=== PATIENT | female | born 1970 | race American Indian/Alaskan Native ===

== ENCOUNTER 2017-10-16 10:00 | Emergency (ER) | payer BC ==
[2017-10-16 10:18] VITALS: BP 128/82
[2017-10-16 11:59] LABS: Hematocrit 33.5 % (30.3-42.9); Hemoglobin 10.2 gm/dl (10.1-14.3); Mean Corpuscular HGB Conc 31 % (30-34); Platelet Count 448 K/mm3 (140-440); Red Blood Count 5.16 M/mm3 (3.65-5.03); Red Cell Distribution Width 17.4 % (13.2-15.2)
[2017-10-16 12:03] LABS: Mean Corpuscular Hemoglobin 20 pg (28-32); Mean Corpuscular Volume 65 fl (79-97)
[2017-10-16 12:14] LABS: BUN/Creatinine Ratio 15; Blood Urea Nitrogen 9 mg/dL (7-17); Calcium 9.5 mg/dL (8.4-10.2); Hemolysis Index 0
[2017-10-16] MEDS ORDERED: ZOFRAN IV ONE (13:06)
[2017-10-16] MEDS ORDERED: TORADOL IV ONE (13:06)
[2017-10-16] MEDS ORDERED: MORPHINE IV ONE (13:06)
--- NOTE | 2017-10-16 15:24 | Emergency Department Report ---
ED Seizure HPI - General Chief Complaint: Seizure Stated Complaint: SEIZURE Time Seen by Provider: 10/16/17 12:44 Source: EMS Mode of arrival: Stretcher Limitations: No Limitations - History of Present Illness Initial Comments: 47-year-old female with a past medical history seizures presents to the hospital status post seizure. Patient's I have any preseizure symptoms. She has generalized shaking episode. Upon EMS arrival patient is post ictal with mild lateral tongue abrasion and urinary incontinence. Patient complains of a moderate generalized headache, no focal weakness, no focal numbness, fever. Patient admits to intermittent compliance with her medication and is unsure if she had her dose last night or this morning. Patient also expresses concern that her neurologist is not properly treating her despite her "paying him a lot of money" - Related Data Previous Rx's Medication Instructions Recorded Last Taken Type Ibuprofen [Motrin] 800 mg PO Q8HR PRN #30 tablet 10/16/17 Unknown Rx Allergies Allergy/AdvReac Type Severity Reaction Status Date / Time No Known Allergies Allergy Unverified 10/16/17 10:37 ED Review of Systems ROS: Stated complaint: SEIZURE Other details as noted in HPI Comment: All other systems reviewed and negative Other: Constitutional: No fevers chills Eyes: No eye pain visual changes ENT: No ear pain or throat pain Neck: Denies pain Respiratory: Denies cough wheezing shortness of breath Cardiovascular: Denies chest pain, palpitations, syncope GI: Denies abdominal pain, nausea, vomiting, diarrhea : Denies dysuria Musculoskeletal: Denies back pain Skin: Denies rash, lesions, erythema Neurologic: Denies numbness, weakness Psychiatric: Denies suicidal ideation, hallucinations ED Past Medical Hx - Social History Smoking Status: Never Smoker Substance Use Type: Alcohol - Medications Home Medications: Home Medications Medication Instructions Recorded Confirmed Last Taken Type Ibuprofen [Motrin] 800 mg PO Q8HR PRN #30 tablet 10/16/17 Unknown Rx ED Physical Exam - General Limitations: No Limitations - Other Other exam information: General: No limitations, patient is alert in no acute distress Head exam: Atraumatic, normocephalic Eyes exam: Normal appearance, pupils equal reactive to light, extraocular movements intact ENT: Moist mucous membrane, normal oropharynx. Minimum left lateral tongue abrasion without laceration or active bleeding Neck exam: Normal inspection, full range of motion, no meningismus nontender Respiratory exam: Clear to auscultation bilateral, no wheezes, rales, crackles Cardiovascular: Normal rate and rhythm, normal heart sounds Abdomen: Soft, nondistended, and nontender, with normal bowel sounds, no rebound, or guarding Extremity: Full range of motion normal inspection no deformity Back: Normal Inspection, full range of motion, no tenderness Neurologic: Alert, oriented x3, cranial nerves intact, no motor or sensory deficit Psychiatric: normal affect, normal mood Skin: Warm, dry, intact ED Course Vital Signs 10/16/17 10:13 Temperature 98.5 F Pulse Rate 96 H Blood Pressure 128/82 O2 Sat by Pulse 97 Oximetry - Reevaluation(s) Reevaluation #1: 10/16/17 15:21 She treated with morphine, Toradol, and Zofran for headache with improvement Fosphenytoin initiated for seizure ED Medical Decision Making - Lab Data Result diagrams: 10/16/17 11:49 10/16/17 11:49 Lab Results 10/16/17 10/16/17 10/16/17 Range/Units 10:54 11:49 11:49 WBC 6.9 (4.5-11.0) K/mm3 RBC 5.16 H (3.65-5.03) M/mm3 Hgb 10.2 (10.1-14.3) gm/dl Hct 33.5 (30.3-42.9) % MCV 65 L (79-97) fl MCH 20 L (28-32) pg MCHC 31 (30-34) % RDW 17.4 H (13.2-15.2) % Plt Count 448 H (140-440) K/mm3 Sodium 135 L (137-145) mmol/L Potassium 4.1 (3.6-5.0) mmol/L Chloride 93.7 L (98-107) mmol/L Carbon Dioxide 28 (22-30) mmol/L Anion Gap 17 mmol/L BUN 9 (7-17) mg/dL Creatinine 0.6 L (0.7-1.2) mg/dL Estimated GFR > 60 ml/min BUN/Creatinine Ratio 15 % Glucose 108 H (65-100) mg/dL POC Glucose 107 H (70-105) Calcium 9.5 (8.4-10.2) mg/dL Magnesium (1.7-2.3) mg/dL HCG, Qual (Negative) Phenytoin (10.0-20.0) ug/mL 10/16/17 10/16/17 10/16/17 Range/Units 13:12 13:12 13:12 WBC (4.5-11.0) K/mm3 RBC (3.65-5.03) M/mm3 Hgb (10.1-14.3) gm/dl Hct (30.3-42.9) % MCV (79-97) fl MCH (28-32) pg MCHC (30-34) % RDW (13.2-15.2) % Plt Count (140-440) K/mm3 Sodium (137-145) mmol/L Potassium (3.6-5.0) mmol/L Chloride (98-107) mmol/L Carbon Dioxide (22-30) mmol/L Anion Gap mmol/L BUN (7-17) mg/dL Creatinine (0.7-1.2) mg/dL Estimated GFR ml/min BUN/Creatinine Ratio % Glucose (65-100) mg/dL POC Glucose (70-105) Calcium (8.4-10.2) mg/dL Magnesium 1.90 (1.7-2.3) mg/dL HCG, Qual Negative (Negative) Phenytoin 1.0 L (10.0-20.0) ug/mL - Medical Decision Making Seizure Patient expressed that she thinks she is being in adequately managed by her neurologist however, admits to medication noncompliance Dilantin level 1 1 and therefore subtherapeutic secondary to noncompliance I discussed the importance of compliance with patient and her family members. If she continues to have seizures despite compliance and therapeutic levels she may need an alternative medication at that time Patient will be given alternative neurologist for follow-up per her request. - Differential Diagnosis breakthrough seizure, electrolyte abnormality, medication noncompliance Critical Care Time: No Critical care attestation.: If time is entered above; I have spent that time in minutes in the direct care of this critically ill patient, excluding procedure time. ED Disposition Clinical Impression: Seizure, Noncompliance with medication regimen Disposition: - TO HOME OR SELFCARE Is pt being admited?: No Does the pt Need Aspirin: No Condition: Stable Instructions: Epilepsy (ED) Additional Instructions: Take your medication as prescribed and try not to miss doses. Follow-up with your neurologist will either neurologist provided. Return if symptoms worsen as indicated by your discharge instructions. Prescriptions: Ibuprofen [Motrin] 800 mg PO Q8HR PRN #30 tablet PRN Reason: Pain Referrals: MARYAM WALLS MD [Staff Physician] - 3-5 Days (Neurologist) NETTA DOUGHERTY MD [Staff Physician] - 3-5 Days (Neurologist) Time of Disposition: 15:27 (d/c after med infusion)
[2017-10-16] MEDS ORDERED: CEREBYX 1,000 MG.PE in NACL 0.9% 100 ML IV ONE (16:22)
== END 2017-10-16 17:21 | disposition home or self-care (01) ==
LOC: ED 10:00
DX: G40.909 Epilepsy, unspecified, not intractable, without status epilepticus (principal); Z91.14 Patient's other noncompliance with medication regimen
CPT/HCPCS: 36415; 80048; 80185; 82962; 83735; 84703; 85027; 96365; 96375; 99284; J1885; J2270; J2405; Q2009

== ENCOUNTER 2018-01-30 16:37 | Emergency (ER) | payer BC ==
[2018-01-30 18:07] LABS: Hematocrit 37.6 % (30.3-42.9); Hemoglobin 11.6 gm/dl (10.1-14.3); Mean Corpuscular HGB Conc 31 % (30-34); Platelet Count 334 K/mm3 (140-440); Red Blood Count 5.44 M/mm3 (3.65-5.03); Red Cell Distribution Width 18.3 % (13.2-15.2)
[2018-01-30 18:10] LABS: Mean Corpuscular Hemoglobin 21 pg (28-32); Mean Corpuscular Volume 69 fl (79-97)
[2018-01-30 18:28] LABS: BUN/Creatinine Ratio 17; Blood Urea Nitrogen 10 mg/dL (7-17); Hemolysis Index 197
--- NOTE | 2018-01-30 19:21 | Emergency Department Report ---
ED Seizure HPI - General Chief Complaint: Altered Mental Status Stated Complaint: SEIZURE Time Seen by Provider: 01/30/18 18:31 Source: family Mode of arrival: Wheelchair Limitations: No Limitations - History of Present Illness MD Complaint: seizure -: Sudden Description of Episode: loss of consciousness, tonic-clonic movement -: minutes(s) (2) Witnessed:: Yes Trauma: No Seizure History: known seizure disorder Place: home Possible Precipitating Event: other (patient ran out of her Dilantin.) Associated Symptoms: denies other symptoms Treatments Prior to Arrival: none - Related Data Previous Rx's Medication Instructions Recorded Last Taken Type Ibuprofen [Motrin] 800 mg PO Q8HR PRN #30 tablet 10/16/17 Unknown Rx Phenytoin Sodium Extended 300 mg PO QHS #90 capsule 01/30/18 Unknown Rx [Dilantin] Allergies Allergy/AdvReac Type Severity Reaction Status Date / Time No Known Allergies Allergy Unverified 10/16/17 10:37 ED Review of Systems ROS: Stated complaint: SEIZURE Other details as noted in HPI Comment: All other systems reviewed and negative Constitutional: denies: chills, fever Eyes: denies: vision change ENT: denies: ear pain, throat pain Respiratory: denies: cough, shortness of breath Cardiovascular: denies: chest pain, palpitations Endocrine: no symptoms reported Gastrointestinal: denies: abdominal pain, nausea, vomiting, diarrhea Genitourinary: denies: urgency, dysuria, frequency Musculoskeletal: denies: back pain, joint swelling Skin: denies: rash, change in color Neurological: denies: headache, weakness, numbness Psychiatric: denies: anxiety, depression Hematological/Lymphatic: denies: easy bleeding, easy bruising ED Past Medical Hx - Social History Smoking Status: Never Smoker Substance Use Type: None - Medications Home Medications: Home Medications Medication Instructions Recorded Confirmed Last Taken Type Ibuprofen [Motrin] 800 mg PO Q8HR PRN #30 tablet 10/16/17 Unknown Rx Phenytoin Sodium Extended 300 mg PO QHS #90 capsule 01/30/18 Unknown Rx [Dilantin] ED Physical Exam - General Limitations: No Limitations General appearance: alert, in no apparent distress - Head Head exam: Present: atraumatic, normal inspection - Eye Eye exam: Present: normal appearance, PERRL, EOMI Pupils: Present: normal accommodation - ENT ENT exam: Present: normal exam, normal orophraynx, mucous membranes moist - Neck Neck exam: Present: normal inspection, full ROM. Absent: tenderness - Respiratory Respiratory exam: Present: normal lung sounds bilaterally. Absent: respiratory distress, wheezes - Cardiovascular Cardiovascular Exam: Present: regular rate, normal rhythm, normal heart sounds - GI/Abdominal GI/Abdominal exam: Present: soft, normal bowel sounds. Absent: tenderness, guarding, rebound - Extremities Exam Extremities exam: Present: normal inspection, full ROM, normal capillary refill - Back Exam Back exam: Present: normal inspection, full ROM. Absent: tenderness - Neurological Exam Neurological exam: Present: alert, oriented X3, CN II-XII intact - Psychiatric Psychiatric exam: Present: normal affect, normal mood - Skin Skin exam: Present: warm, dry, intact, normal color ED Course Vital Signs 01/30/18 01/30/18 01/30/18 16:51 17:48 18:00 Temperature 97.6 F Pulse Rate 105 H Respiratory 16 Rate Blood Pressure 136/82 113/81 O2 Sat by Pulse 98 97 97 Oximetry 01/30/18 01/30/18 01/30/18 18:31 19:00 19:30 Temperature Pulse Rate Respiratory Rate Blood Pressure 123/61 116/76 119/76 O2 Sat by Pulse 99 98 100 Oximetry 01/30/18 01/30/18 01/30/18 20:00 20:30 21:00 Temperature Pulse Rate Respiratory Rate Blood Pressure 116/80 117/76 122/70 O2 Sat by Pulse 100 100 96 Oximetry ED Medical Decision Making - Lab Data Result diagrams: 01/30/18 17:39 01/30/18 20:25 - Medical Decision Making Seizure disorder. Critical care attestation.: If time is entered above; I have spent that time in minutes in the direct care of this critically ill patient, excluding procedure time. ED Disposition Clinical Impression: Seizure disorder Disposition: - TO HOME OR SELFCARE Is pt being admited?: No Does the pt Need Aspirin: No Condition: Stable Instructions: Epilepsy (ED), Recurrent Seizures Adult (ED) Additional Instructions: Follow-up with your neurologist tomorrow morning. Return to the emergency room if her condition worsens. Prescriptions: Phenytoin Sodium Extended [Dilantin] 300 mg PO QHS #90 capsule Referrals: PRIMARY CARE, [Primary Care Provider] - 3-5 Days Time of Disposition: :13
[2018-01-30] MEDS ORDERED: NACL 0.9% 1000 ML 1,000 ML IV ONE (19:22)
[2018-01-30] MEDS ORDERED: CEREBYX 1,000 MG.PE in NACL 0.9% 100 ML IV ONE (19:22)
[2018-01-30 20:56] LABS: BUN/Creatinine Ratio 18; Blood Urea Nitrogen 9 mg/dL (7-17); Calcium 9.1 mg/dL (8.4-10.2); Hemolysis Index 9
[2018-01-31 00:53] VITALS: BP 116/67
== END 2018-01-31 00:53 | disposition home or self-care (01) ==
LOC: ED 16:37
DX: G40.909 Epilepsy, unspecified, not intractable, without status epilepticus (principal)
CPT/HCPCS: 36415; 80048; 80185; 82962; 84132; 85027; 85730; 93005; 93010; 96365; 99283; J7030; Q2009

== ENCOUNTER 2018-11-01 05:05 | Inpatient (IN) | payer BC, OTHER ==
--- NOTE | 2018-11-01 06:29 | Emergency Department Report ---
ED Seizure HPI - General Chief Complaint: Seizure Stated Complaint: SEIZURES Time Seen by Provider: 11/01/18 06:15 Source: patient, EMS Mode of arrival: Stretcher Limitations: No Limitations - History of Present Illness Initial Comments: Patient is a 48-year-old female that presents emergency room with multiple seizures. Patient states her neurologist changed her seizure medications around because her Dilantin level was high. Patient taking less Dilantin and started on a new seizure medication. Patient seizure witnessed by her . Patient's said they lasted about 5 minutes and were multiple. EMS brought patient to the ER. Patient A& O 3 but sluggish. MD Complaint: seizure -: Sudden Description of Episode: loss of consciousness, tonic-clonic movement, post-event confusion -: minutes(s) Witnessed:: Yes Trauma: No Seizure History: known seizure disorder, compliant with medication, other (patient's neurologist recently adjusted her medications.) Place: home Possible Precipitating Event: medication Associated Symptoms: tongue injury. denies: chest pain, confusion, cough, d iaphoresis, fever/chills, loss of appetite, malaise, rash, shortness of breath, syncope, weakness, shoulder dislocation Treatments Prior to Arrival: none - Related Data Home Medications Medication Instructions Recorded Confirmed Last Taken Phenytoin Sodium Extended 400 mg PO QHS 07/28/18 11/01/18 10/31/18 20:00 [Dilantin] Zonisamide 100 mg PO HS 11/01/18 11/01/18 10/31/18 20:00 Allergies Allergy/AdvReac Type Severity Reaction Status Date / Time No Known Allergies Allergy Unverified 10/16/17 10:37 ED Review of Systems ROS: Stated complaint: SEIZURES Other details as noted in HPI Constitutional: denies: chills, fever Eyes: denies: eye pain, eye discharge, vision change ENT: denies: ear pain, throat pain Respiratory: denies: cough, shortness of breath, wheezing Cardiovascular: denies: chest pain, palpitations Endocrine: no symptoms reported Gastrointestinal: denies: abdominal pain, nausea, diarrhea Genitourinary: denies: urgency, dysuria, discharge Musculoskeletal: denies: back pain, joint swelling, arthralgia Skin: denies: rash, lesions Neurological: denies: headache, weakness, paresthesias Psychiatric: denies: anxiety, depression Hematological/Lymphatic: denies: easy bleeding, easy bruising ED Past Medical Hx - Past Medical History Previous Medical History?: Yes Hx Hypertension: No Hx CVA: No Hx Heart Attack/AMI: No Hx Congestive Heart Failure: No Hx Diabetes: No Hx Deep Vein Thrombosis: No Hx Pulmonary Embolism: No Hx GERD: No Hx Liver Disease: No Hx Renal Disease: No Hx Sickle Cell Disease: No Hx Arthritis: No Hx Headaches / Migraines: No Hx Seizures: Yes Hx Kidney Stones: No Hx Psychiatric Treatment: No Hx Asthma: No Hx COPD: No Hx Tuberculosis: No Hx Dementia: No Hx HIV: No - Surgical History Past Surgical History?: Yes Additional Surgical History: tubligation, hysterectomy - Family History Family history: no significant - Social History Smoking Status: Never Smoker Substance Use Type: None - Medications Home Medications: Home Medications Medication Instructions Recorded Confirmed Last Taken Type Phenytoin Sodium Extended 400 mg PO QHS 07/28/18 11/01/18 10/31/18 20:00 History [Dilantin] Zonisamide 100 mg PO HS 11/01/18 11/01/18 10/31/18 20:00 History ED Physical Exam - General Limitations: No Limitations General appearance: alert, in no apparent distress - Head Head exam: Present: atraumatic, normocephalic - Eye Eye exam: Present: normal appearance, PERRL Pupils: Present: normal accommodation - ENT ENT exam: Present: mucous membranes moist - Neck Neck exam: Present: normal inspection - Respiratory Respiratory exam: Present: normal lung sounds bilaterally. Absent: respiratory distress - Cardiovascular Cardiovascular Exam: Present: regular rate, normal rhythm. Absent: systolic murmur, diastolic murmur, rubs, gallop - GI/Abdominal GI/Abdominal exam: Present: soft, normal bowel sounds - Extremities Exam Extremities exam: Present: normal inspection - Back Exam Back exam: Present: normal inspection - Neurological Exam Neurological exam: Present: alert, oriented X3 - Psychiatric Psychiatric exam: Present: normal affect, normal mood - Skin Skin exam: Present: warm, dry, intact, normal color. Absent: rash ED Course Vital Signs 11/01/18 11/01/18 11/01/18 05:13 06:43 07:00 Temperature 98.8 F Pulse Rate 98 H 95 H Respiratory 12 20 14 Rate Blood Pressure 131/90 109/63 Blood Pressure 130/91 [Right] O2 Sat by Pulse 98 98 97 Oximetry 11/01/18 11/01/18 11/01/18 07:30 07:37 07:46 Temperature Pulse Rate 89 61 Respiratory 11 L 16 25 H Rate Blood Pressure 110/80 156/84 Blood Pressure [Right] O2 Sat by Pulse Oximetry 11/01/18 11/01/18 11/01/18 10:06 10:30 11:10 Temperature Pulse Rate 87 82 102 H Respiratory 15 15 12 Rate Blood Pressure 133/79 113/69 133/79 Blood Pressure [Right] O2 Sat by Pulse 97 99 Oximetry 11/01/18 11/01/18 11/01/18 11:30 12:00 12:30 Temperature Pulse Rate 93 H 97 H 93 H Respiratory 14 12 15 Rate Blood Pressure 113/74 109/77 112/75 Blood Pressure [Right] O2 Sat by Pulse 100 Oximetry 11/01/18 11/01/18 13:00 14:32 Temperature Pulse Rate 109 H 18 L Respiratory 14 14 Rate Blood Pressure 110/69 Blood Pressure 110/69 [Right] O2 Sat by Pulse 99 100 Oximetry - Reevaluation(s) Reevaluation #1: Initial evaluation done. Patient answering all questions appropriately. P atient states that they have been changing her medications around. 11/01/18 06:15 Seizure activity noted. Patient was given Ativan. 11/01/18 07:37 Patient still not answering questions appropriately. Patient is lethargic but arousable. We'll do a CT of the head 11/01/18 10:46 Discussed all results the patient. Patient agrees with plan of care and admission. Patient is more arousable. is at bedside 11/01/18 11:42 - Consultations Consultation #1: Hospitalist consult for admission. Hospitalist to admit patient and assume care of patient. 11/01/18 12:01 ED Medical Decision Making - Lab Data Result diagrams: 11/01/18 07:21 11/01/18 07:21 - Radiology Data Radiology results: report reviewed CT HEAD WITHOUT CONTRAST INDICATION: Seizure. COMPARISON: None similar at this institution. FINDINGS: Noncontrast head CT demonstrates normal ventricles and sulci without acute or recent infarct, hemorrhage, mass effect or midline shift. No abnormal extra-axial fluid collections. Posterior fossa structures and basilar cisterns within normal limits. Symmetric eye globes. Clear paranasal sinuses and mastoid air cells. Intact calvarium. Normal overlying scalp soft tissues. CONCLUSION: No acute intracranial CT abnormality, as described. Thank you for the opportunity to participate in this patient's care. - Medical Decision Making Patient is a 48-year-old female that presents emergency room with complaints of seizure. Patient has had multiple seizure event. Patient had a witnessed seizure in the ER. Patient was given Ativan. Patient was admitted to the hospital service for further evaluation and treatment. Head CT negative. Labs unremarkable. - Differential Diagnosis seizure. status epl Critical Care Time: Yes Critical care attestation.: If time is entered above; I have spent that time in minutes in the direct care of this critically ill patient, excluding procedure time. Critical Care Time: 35 minutes ED Disposition Clinical Impression: Seizure, Status epilepticus Disposition: OP ADMIT IP TO THIS HOSP Is pt being admited?: Yes Does the pt Need Aspirin: No Condition: Critical Time of Disposition: 12:02
[2018-11-01] MEDS ORDERED: TYLENOL PO ONE (07:19)
[2018-11-01 07:32] LABS: Basophils % (Auto) 0.3 % (0.0-1.8); Eosinophils # (Auto) 0.1 K/mm3 (0.0-0.4); Eosinophils % (Auto) 1.7 % (0.0-4.3); Hematocrit 36.3 % (30.3-42.9); Hemoglobin 11.5 gm/dl (10.1-14.3); Lymphocytes # (Auto) 1.3 K/mm3 (1.2-5.4); Lymphocytes % (Auto) 22.5 % (13.4-35.0); Mean Corpuscular HGB Conc 32 % (30-34); Monocytes # (Auto) 0.3 K/mm3 (0.0-0.8); Monocytes % (Auto) 5.7 % (0.0-7.3); Platelet Count 297 K/mm3 (140-440); Red Blood Count 5.25 M/mm3 (3.65-5.03); Red Cell Distribution Width 15.8 % (13.2-15.2)
[2018-11-01 07:34] LABS: Mean Corpuscular Volume 69 fl (79-97)
[2018-11-01 07:40] LABS: Bilirubin,Urine NEG (Negative); Blood,Urine NEG (Negative); Color,Urine Straw (Yellow); Protein,Urine <15 mg/dL mg/dL (Negative); Urobilinogen,Urine < 2.0 mg/dL (<2.0); WBC,Urine < 1.0 /HPF (0.0-6.0)
[2018-11-01] MEDS ORDERED: ATIVAN IV ONE (07:40)
[2018-11-01 07:49] LABS: HCG Qualitative,Urine Negative (Negative)
[2018-11-01 07:49] LABS: BUN/Creatinine Ratio 23; Blood Urea Nitrogen 14 mg/dL (7-17); Calcium 9.3 mg/dL (8.4-10.2); Hemolysis Index 0
[2018-11-01] MEDS ORDERED: ATIVAN ONE (07:49)
--- NOTE | 2018-11-01 11:16 | Cat Scan Report ---
CT HEAD WITHOUT CONTRAST INDICATION: Seizure. COMPARISON: None similar at this institution. FINDINGS: Noncontrast head CT demonstrates normal ventricles and sulci without acute or recent infarct, hemorrhage, mass effect or midline shift. No abnormal extra-axial fluid collections. Posterior fossa structures and basilar cisterns within normal limits. Symmetric eye globes. Clear paranasal sinuses and mastoid air cells. Intact calvarium. Normal overlying scalp soft tissues. CONCLUSION: No acute intracranial CT abnormality, as described. Thank you for the opportunity to participate in this patient's care.
--- NOTE | 2018-11-01 12:26 | History and Physical Report ---
History of Present Illness Chief complaint: Seizures History of present illness: 48 YO Female with Seizure Disorder, Obesity presents to ED for evaluation. Pt acknowledges multiple seizures over the past 1 week, with increasing frequency of seizures over the past 3 days. Pt states that her most recent seizure resulted in a fall in the bathtub with injury to her face. Pt states that her neurologist has recently changed her medication regimen. Pt seizures were witnessed by her . Pt describes generalized seizure that lasted approximately 5 minutes. Pt acknowledges loss of continence, feeling confused, as well as headache. EMS notified, and upon arrival the patient was found to be in distress. Pt found to be Postictal. Pt admitted to medical floor. Pt restarted on Zonisamide and Dilantin. Pt denies fever, chills, back pain, hematuria, BRBPR, vertigo, shortness of breath, unilateral leg swelling, calf pain, productive cough, or recent ill contacts. Neurology consulted in ED. Pt has no admission at this hospital. Past History Past Surgical History: hysterectomy, Other (tubal ligation) Social history: , lives with family. denies: smoking, alcohol abuse Family history: no significant family history (reviewed) Medications and Allergies Allergies Allergy/AdvReac Type Severity Reaction Status Date / Time No Known Allergies Allergy Unverified 10/16/17 10:37 Home Medications Medication Instructions Recorded Confirmed Last Taken Type Phenytoin Sodium Extended 400 mg PO QHS 07/28/18 11/01/18 10/31/18 20:00 History [Dilantin] Zonisamide 100 mg PO HS 11/01/18 11/01/18 10/31/18 20:00 History Review of Systems Constitutional: no weight loss, no weight gain, no fever Breasts: no change in shape, no swelling, no mass Cardiovascular: no chest pain, no orthopnea, no palpitations, no rapid/irregular heart beat, no edema Respiratory: no cough, no cough with sputum, no excessive sputum, no hemoptysis, no shortness of breath Gastrointestinal: no nausea, no diarrhea, no constipation, no change in bowel habits Genitourinary Female: no pelvic pain, no flank pain, no menorrhagia, no dysuria, no urinary frequency, no urgency Rectal: no pain, no incontinence, no bleeding Musculoskeletal: no neck pain, no shooting arm pain, no arm numbness/tingling, no low back pain Integumentary: no rash, no pruritis, no redness, no sores, no wounds Neurological: no paralysis, no weakness, no parathesias, no numbness, no tingling Psychiatric: no anxiety, no memory loss, no change in sleep habits, no sleep disturbances, no insomnia, no hypersomnia Endocrine: no heat intolerance, no polyphagia, no excessive thirst, no polydipsia, no polyuria Hematologic/Lymphatic: no easy bruising, no easy bleeding, no lymphadenopathy, no lymphedema Allergic/Immunologic: no urticaria, no allergic rhinitis, no wheezing, no persistent infections Exam - Constitutional Vitals: Temp Pulse Resp BP Pulse Ox 98.8 F 82 15 113/69 99 11/01/18 05:13 11/01/18 10:30 11/01/18 10:30 11/01/18 10:30 11/01/18 10:30 General appearance: Present: mild distress, other (l) - EENT Eyes: Present: PERRL ENT: hearing intact, clear oral mucosa - Neck Neck: Present: supple, normal ROM - Respiratory Respiratory effort: normal Respiratory: bilateral: CTA - Cardiovascular Heart Sounds: Present: S1 & S2. Absent: rub, click - Extremities Extremities: pulses symmetrical, No edema Peripheral Pulses: within normal limits - Abdominal General gastrointestinal: Present: soft, non-tender, non-distended, normal bowel sounds Female genitourinary: Present: normal - Integumentary Integumentary: Present: clear, warm, dry - Musculoskeletal Musculoskeletal: gait normal, strength equal bilaterally - Psychiatric Psychiatric: appropriate mood/affect, intact judgment & insight - Neurologic Neurologic: CNII-XII intact, moves all extremities Results - Labs CBC & Chem 7: 11/01/18 07:21 11/01/18 07:21 Labs: Abnormal lab results 11/01/18 11/01/18 Range/Units 07:21 07:21 RBC 5.25 H (3.65-5.03) M/mm3 MCV 69 L (79-97) fl MCH 22 L (28-32) pg RDW 15.8 H (13.2-15.2) % Creatinine 0.6 L (0.7-1.2) mg/dL Glucose 115 H (65-100) mg/dL Assessment and Plan - Patient Problems (1) Encephalopathy Current Visit: Yes Status: Acute Plan to address problem: CT Head, neuro checks, aspiration precautions, seizure precautions, fall precautions, supportive care, (2) Seizure Current Visit: Yes Status: Acute Plan to address problem: CT Head, neuro checks, aspiration precautions, fall precautions, dilantin level, continue Zonisamide (3) Status epilepticus Current Visit: Yes Status: Acute Plan to address problem: Ativan prn, aspiration precautions, (4) DVT prophylaxis Current Visit: Yes Status: Acute Plan to address problem: SCD to BLE while in bed,
[2018-11-01] MEDS ORDERED: ZOFRAN IV PRN (12:30)
[2018-11-01] MEDS ORDERED: SODIUM CHLORIDE FLUSH SYRINGE 10 ML IV PRN (12:30)
[2018-11-01] MEDS ORDERED: TYLENOL PO PRN (12:30)
[2018-11-01] MEDS ORDERED: PROVENTIL IH PRN (12:30)
[2018-11-01] MEDS ORDERED: [UNRECOGNIZED DRUG - OTHER] IV STA (13:45)
[2018-11-01] MEDS ORDERED: NACL IV STA (13:45)
[2018-11-01] MEDS ORDERED: CEREBYX IV STA (13:45)
[2018-11-01] MEDS: DILANTIN PO SCH (14:42)
[2018-11-01] MEDS ORDERED: ATIVAN IV PRN (15:00)
[2018-11-01] MEDS: ZONISAMIDE 100 MG PO SCH ×2 (15:09→21:28)
[2018-11-01] MEDS ORDERED: FIORICET PO PRN (18:03)
--- NOTE | 2018-11-01 18:44 | Consultation ---
History of Present Illness Consult date: 11/01/18 Requesting physician: DANI JETT Reason for Consult: seizures Chief complaint: seizures History of present illness: This 48-year-old right-handed -[place] female had a seizure last night according to the ER around midnight and then 1 at 4 AM in which she bit her tongue in her sleep. She then had another one in the emergency room where she bit her tongue. She was not incontinent. She says seizures had been once a week prior to about October 03 which is when she thought she last saw Dr. Warren but I woke to Dr. Warren says she last saw her October 19. The patient then told her Dilantin level was "double" which per Dr. Warren was 25.2 on 500 mg a day and she was also sleepy from it and by description ataxic. She had been on oxcarbazepine 300 mg which she been told to stop but finally stopped apparently at the October 19 visit. She says Keppra made her sleepy and Briviact made her groggy. Dr. Warren had had her up to 2 a day of zonisamide 100 mg but because of the side effects which she wasn't sure as to whether they were from Dilantin or dizziness might, she told her to go back to 100 mg and she lowered the Dilantin to 400 mg at bedtime. She had not measured the zonisamide level. She had been on an epilepsy monitoring unit at [facility] in July where they recorded one seizure from the right temporal region but per Dr. Warren bitemporal spikes had been seen as well but no suggestion of nonepileptic spells. We discussed repeat monitoring and possibly use of ictal SPECT and PET scan in case her seizures actually are primarily unilateral in origin. Ms. Rodriguez fell in her shower 4 days after apparently seen Dr. Pena and was taken to [facility] but no blood level was done. She hit her left eye. 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 denies: , smoking, alcohol abuse, prescription drug abuse, IV drug use Family history: no significant family history (reviewed), hypertension (maternal grandmother, mother, daughter), stroke (in maternal grandmother), other (epilepsy in her maternal grandmother following a stroke). denies: diabetes Medications and Allergies Allergies Allergy/AdvReac Type Severity Reaction Status Date / Time No Known Allergies Allergy Unverified 10/16/17 10:37 Home Medications Medication Instructions Recorded Confirmed Last Taken Type Phenytoin Sodium Extended 400 mg PO QHS 07/28/18 11/01/18 10/31/18 20:00 History [Dilantin] Zonisamide 100 mg PO HS 11/01/18 11/01/18 10/31/18 20:00 History Active Meds: Active Medications Acetaminophen (Tylenol) 650 mg PO Q4H PRN PRN Reason: Pain MILD(1-3)/Fever >100.5/JIMENEZ Acetaminophen/Butalbital/Caffeine (Fioricet) 1 tab PO Q4H PRN PRN Reason: Headache Albuterol (Proventil) 2.5 mg IH Q4HRT PRN PRN Reason: Shortness Of Breath Famotidine (Pepcid) 10 mg PO BID EDY Lorazepam (Ativan) 2 mg IV Q4H PRN PRN Reason: Agitation Miscellaneous Medication (Zonisamide [Zonisamide]) 100 mg PO BID [facility] Last Admin: 11/01/18 15:09 Dose: Not Given Documented by: Ondansetron HCl (Zofran) 4 mg IV Q8H PRN PRN Reason: Nausea And Vomiting Phenytoin (Dilantin) 200 mg PO NOW [facility] Last Admin: 11/01/18 14:42 Dose: 200 mg Documented by: Phenytoin (Dilantin) 200 mg PO QAM [facility] Phenytoin (Dilantin) 200 mg PO QHS [facility] Sodium Chloride (Sodium Chloride Flush Syringe 10 Ml) 10 ml IV BID [facility] Sodium Chloride (Sodium Chloride Flush Syringe 10 Ml) 10 ml IV PRN PRN PRN Reason: LINE FLUSH Review of Systems All systems: negative (right frontal and temporal headache a little daily including today when it is worse but without nausea though some phonophobia. No visual change with the headaches, has had altered taste following seizures and I warned her zonisamide can also altered taste which she has recognized. Some lightheadedness that can occur any time. Loud snoring without pauses but doesn't usually take naps him a dose offered 30 minutes at a time although not lately. Sleeps 8-10 hours but may be groggy afterwards. Problems with short- term and remote memory for 2 years. No paresthesias.) Physical Examination - Vital Signs Vital Signs: Vital Signs Temp Pulse Resp BP Pulse Ox 98.8 F 98 H 12 130/91 98 11/01/18 05:13 11/01/18 05:13 11/01/18 05:13 11/01/18 05:13 11/01/18 05:13 - Physical Exam Narrative exam: General Appearance: well developed but obese (per BMI) mid 40s -[place] female in [facility], seen with her parents. HEENT: atraumatic, normocephalic; no bruits, 2+ Sara without soreness or induration or enlargement, sclerae nonicteric. Oropharynx pink and moist. No TMJ click, no TMJ or sinus soreness to pressure or percussion. Neck: supple, no bruits. Heart: no murmur or extra sounds. Extremities: no clubbing, cyanosis or edema. 2+ dorsalis pedis pulses bilaterally. Neurologic Exam: Mental Status: Awake, alert, oriented X 3, speech is clear, names pen and tip of pen, and abstracts well. Names President after first name prompt but cannot get Vulcanizer Operator, serial 7's are slow though she gets 2 correct but cannot continue perhaps due to headache of which she complains though she also gets 5+7 = 12, no right-left confusion, gets 1 of 3 objects at 3 minutes, spells WORLD backwards correctly. Cranial Nerves: templeton full, no papilledema, SVPs present, PERRLA, EOMs full without nystagmus or diplopia, facial sensation intact to pinprick and light touch, no facial weakness, Lee is midline, palate rises symmetrically to phonation OR gags are positive, shoulder shrug is 5 X 2, tongue protrudes midline. Cerebellar: finger to nose slightly dysmetric on the left though perhaps due to IV, heel to burgess is normal. Sensory: intact to light touch, pinprick, and vibrations. Double simultaneous stimulation is intact. Motor Exam Upper Extremities: no drift or pronation, Adelia intact. Windscreen Fitter are 5 X 2, tone is normal. No atrophy or fasciculations are noted visually. Motor Exam Lower Extremities: no leg lag; iliopsoas, quadriceps and anterior tibials and gastrocnemius are 5 X 2. Adelia intact. Tone is normal. No atrophy or fasciculations are noted visually. Reflexes: Palmomental and snout are negative but jaw jerk is strongly positive. Triceps, biceps and brachioradialis are 3 bilaterally. Lloyd's is negative bilaterally. Knee jerks are 3 and ankle jerks are 1+ bilaterally without clonus but with slowing of relaxation phase bilaterally (can be due to phenytoin causing neuropathy). Toes are downgoing bilaterally to Babinski testing. Results - Laboratory Findings CBC and BMP: 11/01/18 07:21 11/01/18 07:21 Abnormal Lab Findings: Abnormal Labs 11/01/18 11/01/18 07:21 07:21 RBC 5.25 H MCV 69 L MCH 22 L RDW 15.8 H Creatinine 0.6 L Glucose 115 H Assessment and Plan Impression: 1. Complex partial epilepsy, intractable Plan: 1. Discussed with Dr. Warren after paging her. Initially said I was planning to give her 250 mg or 260 mg tonight of phenytoin (already had 200 mg po mid day and 400 mg fosphenytoin iv) but decided to just give her 200 mg more po tonight, then 200 mg in the morning. Will try to call in liquid or 50 mg chewable or 30 mg phenytoin ER capsule but if not available till Tuesday (as one pharmacy said), will tell her to take 400 mg total tomorrow (she'll get 200 mg in the morning) depending on tomorrow's level, alternating with 500 mg every other day. 2. She is to check with Dr. Warren tomorrow who will take over. 3. Told Dr. Warren and ordered and explained to patient that I increased zonisamide to 100 mg bid. Though not discussed, phenytoin tends to hold down the zonisamide level. 4. I confirmed with Dr. Warren that she is trying to get a 3 Any MRI on her. She has never gotten a free phenytoin level but I'll leave that to her. 60 minutes spent including discussion of multiple medications and epilepsy monitoring and toxicity of epilepsy medications. This includes [address] Warren. Thank you for an interesting consultation in my area of subspecialty. I was able to call in the 30 mg Brand name Dilantin extended release capsules, q uantity of 60, no refills to [facility] at [address], [place], telephone [phone], and they will have it by about noon tomorrow. I told that pharmacy to say on the directions that the first night she is to take 2 of the 30 mg size along with 2 of the 100 mg size (since she will have had 2 of the 100 mg size tomorrow morning) but then can private branch exchange service advisor to 4 of the 100 mg size and 2 of the 30 mg size all at bedtime nightly. This may need to be adjusted if her phenytoin level in the morning is higher than I wanted to be, taking into account the fact that she will have had 800 mg today as a boost.
[2018-11-01] MEDS: PEPCID PO SCH (21:25)
[2018-11-01] MEDS: SODIUM CHLORIDE FLUSH SYRINGE 10 ML IV SCH (21:28)
[2018-11-01] MEDS ORDERED: DILANTIN PO SCH ×3 (22:00)
[2018-11-01] MEDS ORDERED: ZONISAMIDE 100 MG PO SCH (22:00)
[2018-11-02 06:30] LABS: BUN/Creatinine Ratio 18; Blood Urea Nitrogen 11 mg/dL (7-17); Calcium 9.1 mg/dL (8.4-10.2); Hemolysis Index 5
[2018-11-02] MEDS: PEPCID PO SCH ×2 (10:36→22:35)
[2018-11-02] MEDS: DILANTIN PO SCH ×2 (10:36→14:26)
[2018-11-02] MEDS: SODIUM CHLORIDE FLUSH SYRINGE 10 ML IV SCH ×2 (10:40→22:35)
[2018-11-02] MEDS: ZONISAMIDE 100 MG PO SCH ×2 (10:41→22:39)
[2018-11-02] MEDS: NON-FORMULARY PO SCH (10:43)
--- NOTE | 2018-11-02 14:40 | Event Note ---
Date: 11/02/18 Pt who was admitted today was seen and examined. Will Co tinue with present med and recommendations
[2018-11-02] MEDS ORDERED: DILANTIN PO SCH (22:00)
[2018-11-03] MEDS: PEPCID PO SCH (09:07)
[2018-11-03] MEDS: DILANTIN PO SCH ×2 (09:08→14:38)
[2018-11-03] MEDS: SODIUM CHLORIDE FLUSH SYRINGE 10 ML IV SCH (09:10)
--- NOTE | 2018-11-03 11:55 | Discharge Summary ---
Providers - Providers Date of Admission: 11/01/18 12:30 Attending physician: EULALIO RICHARDSON MD 11/01/18 12:35 Consult to Physician [CONS] Routine Comment: Consulting Provider: MARY JANE CORONEL Physician Instructions: Reason For Exam: breakthrough seizures Primary care physician: [facility], Hospitalization Reason for admission: seizure Condition: Stable Hospital course: 48 YO Female with Seizure Disorder, Obesity presents to ED for evaluation. Pt acknowledges multiple seizures over the past 1 week, with increasing frequency of seizures over the past 3 days. Pt states that her most recent seizure resulted in a fall in the bathtub with injury to her face. Pt states that her neurologist has recently changed her medication regimen. Pt seizures were witnessed by her . Pt describes generalized seizure that lasted approximately 5 minutes. Pt acknowledges loss of continence, feeling confused, as well as headache. EMS notified, and upon arrival the patient was found to be in distress. Pt found to be Postictal. Pt admitted to medical floor. Pt restarted on Zonisamide and Dilantin. Pt denies fever, chills, back pain, hematuria, BRBPR, vertigo, shortness of breath, unilateral leg swelling, calf pain, productive cough, or recent ill contacts. Neurology consulted in ED. Pt has no admission at this hospital. Patient was seen and managed by Neurology and per their documentation 1. Discussed with Dr. Warren after paging her. Initially said I was planning to give her 250 mg or 260 mg tonight of phenytoin (already had 200 mg po mid day and 400 mg fosphenytoin iv) but decided to just give her 200 mg more po tonight, then 200 mg in the morning. Will try to call in liquid or 50 mg chewable or 30 mg phenytoin ER capsule but if not available till Tuesday (as one pharmacy said), will tell her to take 400 mg total tomorrow (she'll get 200 mg in the morning) depending on tomorrow's level, alternating with 500 mg every other day. 2. She is to check with Dr. Warren tomorrow who will take over. 3. Told Dr. Warren and ordered and explained to patient that I increased zonisamide to 100 mg bid. Though not discussed, phenytoin tends to hold down the zonisamide level. 4. I confirmed with Dr. Warren that she is trying to get a 3 Any MRI on her. She has never gotten a free phenytoin level but I'll leave that to her. 60 minutes spent including discussion of multiple medications and epilepsy monitoring and toxicity of epilepsy medications. This includes [address] Warren. Thank you for an interesting consultation in my area of subspecialty. I was able to call in the 30 mg Brand name Dilantin extended release capsules, quantity of 60, no refills to [facility] at [facility], [place], telephone [phone], and they will have it by about noon tomorrow. I told that pharmacy to say on the directions that the first night she is to take 2 of the 30 mg size along with 2 of the 100 mg size (since she will have had 2 of the 100 mg size tomorrow morning) but then can jacquard loom card changer to 4 of the 100 mg size and 2 of the 30 mg size all at bedtime nightly. This may need to be adjusted if her phenytoin level in the morning is higher than I wanted to be, taking into account the fact that she will have had 800 mg today as a boost. Patient did not have any further seizure activity, all instruction was provided by the neurogist to patient and family prior to discharge. Imaging studies were unremarkable (1) Metabolic Encephalopathy (2) Complex partial epilepsy, intractable (3) Status epilepticus Disposition: DC- TO HOME OR SELFCARE Time spent for discharge: 35 mins Core Measure Documentation - Palliative Care Palliative Care/ Comfort Measures: Not Applicable - Core Measures Any of the following diagnoses?: none Exam - Physical Exam Narrative exam: General appearance: Present:IN NO DISTRESS, RESTING COMFORTABLY - EENT Eyes: Present: PERRL ENT: hearing intact, clear oral mucosa - Neck Neck: Present: supple, normal ROM - Respiratory Respiratory effort: normal Respiratory: bilateral: CTA - Cardiovascular Heart Sounds: Present: S1 & S2. Absent: rub, click - Extremities Extremities: pulses symmetrical, No edema Peripheral Pulses: within normal limits - Abdominal General gastrointestinal: Present: soft, non-tender, non-distended, normal bowel sounds Female genitourinary: Present: normal - Integumentary Integumentary: Present: clear, warm, dry - Musculoskeletal Musculoskeletal: gait normal, strength equal bilaterally - Psychiatric Psychiatric: appropriate mood/affect, intact judgment & insight - Neurologic Neurologic: CNII-XII intact, moves all extremities - Constitutional Vitals: Temp Pulse Resp BP Pulse Ox 98.1 F 91 H 16 114/71 97 11/03/18 05:09 11/03/18 05:09 11/03/18 05:09 11/03/18 05:09 11/03/18 08:31 Plan Activity: advance as tolerated, no driving until cleared by PCP (by Nurologist according to [place] law), fall precautions Diet: low fat Special Instructions: record daily BP diary Additional Instructions: Follow with Primary Neurologist. Take meds as recommneded by the neurologist today and then start prescription tomorrow that has been called in by the neurologist which is a total of 460mg of phenytoin at qhs in addition to others given here. [facility] [Primary Care Provider] - 7 Days Prescriptions: Phenytoin Sodium Extended (Nf) [Dilantin (Nf)] 60 mg PO QHS #90 capsule Famotidine [Pepcid] 10 mg PO BID #60 tablet Zonisamide 200 mg PO HS #60 capsule
[2018-11-03] MEDS: ZONISAMIDE 100 MG PO SCH (12:06)
[2018-11-03] MEDS: NON-FORMULARY PO SCH (12:14)
[2018-11-03 13:11] VITALS: BP 100/69
[2018-11-03] MEDS ORDERED: ZONISAMIDE 200 MG PO ONE (22:00)
[2018-11-03] MEDS ORDERED: ZONISAMIDE 100 MG PO SCH (22:00)
[2018-11-04] MEDS ORDERED: NON-FORMULARY PO SCH (10:00)
[2018-11-04] MEDS ORDERED: ZONISAMIDE 300 MG PO SCH (22:00)
== END 2018-11-03 15:55 | disposition home or self-care (01) | DRG 101 ==
LOC: ED 05:05 → 3A 12:30
PROVIDERS: ADMIT Internal Medicine; ATTEND Internal Medicine
DX: G40.211 Localization-related (focal) (partial) symptomatic epilepsy and epileptic syndromes with complex partial seizures, intractable, with status epilepticus (principal); Z90.710 Acquired absence of both cervix and uterus; Z98.51 Tubal ligation status; Z79.899 Other long term (current) drug therapy
CPT/HCPCS: 36415; 70450; 80048; 80185; 81001; 81025; 85025; G0378; J2060; J3246; Q2009